=== PATIENT | female | born 1995 | race African-American/Black ===

== ENCOUNTER 2019-04-25 17:22 | Observation (INO) | payer OTHER, SELFPAY ==
[2019-04-25 17:46] VITALS: BP 136/77; PULSE 92
[2019-04-25 18:00] VITALS: BMI 33.7
[2019-04-25 18:01] VITALS: BP 133/85; PULSE 88
[2019-04-25 18:16] VITALS: BP 131/89; PULSE 87
[2019-04-25 18:31] VITALS: BP 120/82; PULSE 84
--- NOTE | 2019-04-25 19:12 | OBADM ---
This patient, Rosio Hayes, admitted to the OB room Labor/Delivery/Recovery 106 for observation. Patient/family oriented to hospital policies and general routines including ID bracelet, bed and alarms, visiting hours, pain management, procedures, bathroom and other care routines, personal items, smoking policy, room service/diet, and visiting hours. Patient/Family are encouraged to report perceived risks to care and to ask questions if they do not understand what they are told or what they should do.
--- NOTE | 2019-04-29 09:40 | PM.OBTRLD ---
OB - Triage/Final Diagnosis Visit Information Reason for evaluation: threatened labor
== END 2019-04-25 19:08 | disposition home or self-care (01) ==
PROVIDERS: Admitting Provider Obstetrics & Gynecology; Visit Provider Obstetrics & Gynecology
DX: O47.03 False labor before 37 completed weeks of gestation, third trimester (principal); Z3A.34 34 weeks gestation of pregnancy
CPT/HCPCS: G0378; G0379

== ENCOUNTER 2020-10-22 20:05 | Emergency (ER) | payer OTHER, SELFPAY ==
[2020-10-22] VITALS (11 sets, daily range): BP systolic 123–132; BP diastolic 69–81; PULSE 84–103; RESP 18–25; TEMP 36.8; O2SAT 100
--- NOTE | 2020-10-22 20:09 | ECG_ITS ---
Measurements Intervals [place] Rate: 101 P: 50 LA: 154 QRS: 63 QRSD: 82 T: 2 QT: 332 QTc: 431 Interpretive Statements SINUS TACHYCARDIA NONSPECIFIC T-WAVE ABNORMALITY- INFERIOR LEADS BORDERLINE ECG Electronically Signed On 10-23-2020 5:44:19 CDT by Germán Shah D.O.
[2020-10-22 20:46] LABS: Basophils Percent Auto 0.5 % (0.2-1.2); Eosinophils Percent Auto 0.2 % (0-4.4); Hematocrit 36.1 % (37.0-47.0); Hemoglobin 11.7 g/dL (12.0-15.0); Immature Granulocyte Absolute 0.01 K/mm3 (0.00-0.031); Immature Granulocyte Percent A 0.2 % (0-0.5); Lymphocytes Percent Auto 24.3 % (18.3-44.2); Mean Corpuscular HGB Conc 32.4 g/dl (32-36); Mean Corpuscular Hemoglobin 23.5 pg (26-34); Mean Corpuscular Volume 72.5 fl (80-100); Mean Platelet Volume 9.6 fl (7.4-10.4); Monocytes Absolute Auto 0.4 K/mm3 (0.1-0.6); Neutrophils Absolute Auto 2.7 K/mm3 (1.3-6.7); Neutrophils Percent Auto 64.8 % (45.5-73.1); Platelet Count Result 366 k/mm3 (150-375); Red Blood Count 4.98 M/mm3 (4.2-5.4); Red Cell Distribution Width 15.3 % (11.5-14.5); White Blood Count 4.1 K/mm3 (4.5-10.0)
[2020-10-22] MEDS: LACTATED RINGERS 1,000 ML 999 ML IV CONT (20:53)
[2020-10-22 20:58] LABS: Anion Gap 9 mmol/L (8-16); Blood Urea Nitrogen 3 mg/dL (7-17); Calcium 8.6 mg/dL (8.4-10.2); Carbon Dioxide 21 mmol/L (22-30); Chloride 106 mmol/L (98-107); Estimated CRCL calculation 143 ml/min; Estimated Glomerular Filt Rate > 60; Glucose 100 mg/dL (65-110); Potassium 3.3 mmol/L (3.4-5.0); Sodium 136 mmol/L (137-145)
[2020-10-22 20:59] LABS: INR 0.9; Prothrombin Time 12.2 Seconds (11.1-14.7)
[2020-10-22 21:00] LABS: Partial Thromboplastin Time 32.4 SECONDS (22.3-36.8)
[2020-10-22 21:09] LABS: Troponin I < 0.012 ng/mL (0.000-0.034)
[2020-10-22 21:33] LABS: Add Urine Microscopic? YES; Appearance Urine Cloudy (Clear); Bilirubin Urine Negative (Negative); Blood Urine Negative (Negative); Color Urine Yellow (Yellow); Glucose Urine UA Negative (Negative); Ketones Urine Negative (Negative); Leukocyte Esterase Ur 3+ LEU/UL (Negative); Mucus Urine Rare /lpf; Nitrate Urine Negative (Negative); Protein Urine 1+ mg/dL (Negative); Specific Grav Ur 1.019 (1.001-1.035); Squamous Epithelial Cell Urine Many /hpf (Few); Urobilinogen Urine Negative mg/dL (<2.0); WBC Urine 16-20 /hpf
--- NOTE | 2020-10-22 21:39 | ED.GENADULT ---
HPI - General Adult General Chief complaint: Chest Pain Stated complaint: 12 weeks , CP Time Seen by Provider: 10/22/20 20:09 Source: patient Mode of arrival: ambulatory Limitations: no limitations History of Present Illness HPI narrative: 24-year-old 4 para 2 about 12 weeks of gestation here with complaints of intermittent chest pain which lasts for few seconds to a minute also complains of lower abdominal pain for past few days. She denies any vaginal bleeding or discharge. No history of fever or chills. Denies cough or shortness of breath. Onset (ago): day(s) (4) Location: chest and abdomen Severity: mild Quality: aching Pain Consistency: intermittent Relieving factors: none Exacerbating factors: none Associated symptoms: denies other symptoms Related Data Home Medications Medication Instructions Recorded Confirmed PNV cmb#95-ferrous fumarate-FA 1 tablet PO DAILY 04/25/19 04/25/19 [] aspirin 81 mg PO DAILY 10/22/20 Allergies Allergy/AdvReac Type Severity Reaction Status Date / Time amoxicillin Allergy Swelling Verified 10/22/20 20:30 of Lip/Tongue/Throat Review of Systems Review of Systems: All systems reviewed & are unremarkable except as noted in HPI and below Constitutional: Constitutional: Reports no additional constitutional complaints Eyes: Eyes: Reports no additional eye complaints ENT: Reports system reviewed and no additional complaints, except as documented Cardiovascular: Cardiovascular: Reports as per HPI Respiratory: Respiratory: Reports no additional respiratory complaints Gastrointestinal: Gastrointestinal: Reports as per HPI Genitourinary: Genitourinary: Reports no additional female genitourinary complaints Musculoskeletal: Musculoskeletal: Reports no additional musculoskeletal complaints Neurologic: Reports system reviewed and no additional complaints, except as documented Exam Narrative: GENERAL: Well-appearing, well-nourished, and in no acute distress. HEAD: Normocephalic, atraumatic. EYES: PERRLA and EOMI.. NECK: Supple. CHEST: Clear to auscultation. No respiratory distress. HEART: Regular rate and rhythm. No murmur heard. Normal peripheral pulses. ABDOMEN: Soft, nontender, nondistended, normal active bowel sounds. EXTREMITIES: Normal range of motion. No edema. SKIN: Warm, dry, no rash. NEURO: No focal deficits. Alert and oriented x3. PSYCH: Normal mood and affect. Course Course Emergency Course: Patient had no further episodes of chest pain or abdominal pain. I have reviewed her lab work and EKG with patient. Advised her to drink plenty of fluids, take antibiotic as prescribed, follow-up with OB doctor. Vital Signs Vital signs: Vital Signs Pulse Rate 102 H 10/22/20 20:25 Respiratory Rate 20 10/22/20 20:25 Blood Pressure 123/81 10/22/20 20:25 Pulse Oximetry 100 10/22/20 20:25 Pulse Rate 85 10/22/20 21:30 Respiratory Rate 18 10/22/20 21:30 Blood Pressure 124/69 10/22/20 21:02 Pulse Oximetry 100 10/22/20 20:25 Medical Decision Making Vital Signs Vital Signs: Vital Signs Pulse Rate 102 H 10/22/20 20:25 Respiratory Rate 20 10/22/20 20:25 Blood Pressure 123/81 10/22/20 20:25 Pulse Oximetry 100 10/22/20 20:25 Pulse Rate 85 10/22/20 21:30 Respiratory Rate 18 10/22/20 21:30 Blood Pressure 124/69 10/22/20 21:02 Pulse Oximetry 100 10/22/20 20:25 Lab Data Result diagrams: 10/22/20 20:41 10/22/20 20:41 Labs: Lab Results 10/22/20 10/22/20 10/22/20 Range/Units 20:41 20:41 20:41 WBC 4.1 L (4.5-10.0) K/mm3 RBC 4.98 (4.2-5.4) M/mm3 Hgb 11.7 L (12.0-15.0) g/dL Hct 36.1 L (37.0-47.0) % MCV 72.5 L (80-100) fl MCH 23.5 L (26-34) pg MCHC 32.4 (32-36) g/dl RDW 15.3 H (11.5-14.5) % Plt Count 366 (150-375) k/mm3 MPV 9.6 (7.4-10.4) fl Immature Gran % (Auto) 0.2 (0-0.5) % Neut % (Aut
== END 2020-10-22 22:45 | disposition home or self-care (01) ==
PROVIDERS: Emergency Provider Family Medicine
DX: O26.891 Other specified pregnancy related conditions, first trimester (principal); R07.89 Other chest pain; O23.41 Unspecified infection of urinary tract in pregnancy, first trimester; R00.0 Tachycardia, unspecified; R94.31 Abnormal electrocardiogram [ECG] [EKG]; Z3A.12 12 weeks gestation of pregnancy
CPT/HCPCS: 36415; 80048; 81001; 84484; 85025; 85610; 85730; 87086; 87088; 93005; 96360; 99284; J7120

== ENCOUNTER 2020-10-26 13:13 | Emergency (ER) | payer OTHER, SELFPAY ==
[2020-10-26 13:15] VITALS: BP 134/70; PULSE 89; RESP 16; TEMP 36.4; O2SAT 100
[2020-10-26 14:49] VITALS: BP 134/70; PULSE 80; RESP 18; TEMP 36.4; O2SAT 99
--- NOTE | 2020-10-26 14:55 | ED.SKABFB ---
HPI - Skin/Abscess/Foreign Bdy General Chief complaint: Skin/Abscess/Foreign Body Stated complaint: BOIL R AXILLA Time Seen by Provider: 10/26/20 14:48 Source: patient Mode of arrival: ambulatory Limitations: no limitations History of Present Illness HPI narrative: This is a 24 year old female that presents to the ER for an abscess to the right axilla present over the last month. Reports worsening pain which prompted her to be seen. Reports she is currently 12 weeks . Denies any problems with the . She has had a normal US this . Denies fever or drainage. Related Data Home Medications Medication Instructions Recorded Confirmed PNV cmb#95-ferrous fumarate-FA 1 tablet PO DAILY 04/25/19 04/25/19 [] aspirin 81 mg PO DAILY 10/22/20 Allergies Allergy/AdvReac Type Severity Reaction Status Date / Time amoxicillin Allergy Swelling Verified 10/22/20 20:30 of Lip/Tongue/Throat Review of Systems Review of Systems: CONSTITUTIONAL: Denies fever SKIN: Reports abscess All systems reviewed & are unremarkable except as noted in HPI and below PMFSH Past Medical History Medical History (Updated 10/26/20 @ 16:25 by Latasha Saxena PA-C) No active medical problems Social History Social History (Updated 10/26/20 @ 14:58 by Latasha Saxena PA-C) Smoking status: Current every day smoker Exam Narrative: GENERAL: Well-appearing, well-nourished, and in no acute distress. HEAD: Normocephalic, atraumatic. EYES: EOMI. EXTREMITIES: Normal range of motion. No edema. Right axilla with 2cm area of erythema with central fluctuance, tender to palpation. No lymphangitic streaking SKIN: Warm, dry, no rash. NEURO: No focal deficits. Alert and oriented x3. PSYCH: Normal mood and affect Course Vital Signs Vital signs: Vital Signs Temperature 97.6 F 10/26/20 13:15 Pulse Rate 89 10/26/20 13:15 Respiratory Rate 16 10/26/20 13:15 Blood Pressure 134/70 10/26/20 13:15 Pulse Oximetry 100 10/26/20 13:15 Temperature 97.6 F 10/26/20 14:49 Pulse Rate 80 10/26/20 14:49 Respiratory Rate 18 10/26/20 14:49 Blood Pressure 134/70 10/26/20 14:49 Pulse Oximetry 99 10/26/20 14:49 Procedures Abscess I/D upper extremity: Date of Incision: 10/26/20 Time of Incision: 16:24 Side (if applicable): right Local Anesthetic: lidocaine 1% and with epi Amount of anesthesia used (mL): 3 Technique: incised with #11 blade Irrigation: Yes Packing used?: iodoform I&D Results: Pus and Blood Abcess I&D Additional Comments: Loculations were broken up MDM - Skin/Abscess/Foreign Bdy MDM Narrative Medical decision making narrative: Patient presents the emergency department for abscess present in the right axilla. She is afebrile and nontoxic-appearing. Abscess was successfully drained. Patient will be started on oral antibiotics and is to follow-up with primary doctor. She was given warnings to return to the ER Critical Care Time Critical Care Time Critical Care Time: No Discharge Plan Discharge Clinical Impression: Abscess of skin or subcutaneous tissue Qualifiers: Site of cutaneous abscess: extremity Site of cutaneous abscess of extremity: axilla Laterality: right Qualified Code(s): L02.411 - Cutaneous abscess of right axilla Patient Disposition: Home, Self-Care Condition: Stable Instructions: Antibiotic Form, Abscess (ED) Additional Instructions: Return if symptoms worsen or concerns: any increase in redness, swelling, pain, or fever over 101 Take antibiotics as directed. Clean wound with mild soapy water. Apply antibiotic ointment and clean dressing at least three times daily. Warm compresses 3 times a day for 30 minutes each Follow up with primary care in the next 2-3 days for re-evaluation and packing removal Prescriptions: New clindamycin HCl 300 mg capsule 300 mg PO Q6H 5 Days Qty:
[2020-10-26 16:37] VITALS: BP 122/68; PULSE 78; RESP 18; O2SAT 99
== END 2020-10-26 16:40 | disposition home or self-care (01) ==
PROVIDERS: Emergency Provider Emergency Medicine; PCP Emergency Medicine
DX: L02.411 Cutaneous abscess of right axilla (principal)
CPT/HCPCS: 10061; 87070; 87077; 87147; 87186; 87205; 99283

== ENCOUNTER 2021-04-03 15:17 | Outpatient (CLI) | payer OTHER, SELFPAY ==
[2021-04-03] VITALS (8 sets, daily range): BP systolic 127–146; BP diastolic 83–96; PULSE 86–106; RESP 20; TEMP 36.5; BMI 31.2
[2021-04-03] MEDS: ACETAMINOPHEN 325 MG TABLET 650 MG PO (16:11)
[2021-04-03 16:25] LABS: Basophils Percent Auto 0.4 % (0.2-1.2); Eosinophils Absolute Auto 0.1 K/mm3 (0-0.3); Hematocrit 31.6 % (37.0-47.0); Hemoglobin 10.4 g/dL (12.0-15.0); Immature Granulocyte Absolute 0.06 K/mm3 (0.00-0.031); Immature Granulocyte Percent A 0.5 % (0-0.5); Lymphocytes Absolute Auto 2.07 K/mm3 (0.9-3.2); Lymphocytes Percent Auto 18.7 % (18.3-44.2); Mean Corpuscular HGB Conc 32.9 g/dl (32-36); Mean Corpuscular Volume 72.8 fl (80-100); Mean Platelet Volume 9.7 fl (7.4-10.4); Monocytes Absolute Auto 0.7 K/mm3 (0.1-0.6); Monocytes Percent Auto 6.1 % (2.6-8.5); Neutrophils Absolute Auto 8.1 K/mm3 (1.3-6.7); Neutrophils Percent Auto 73.3 % (45.5-73.1); Platelet Count Result 389 k/mm3 (150-375); Red Blood Count 4.34 M/mm3 (4.2-5.4); Red Cell Distribution Width 14.8 % (11.5-14.5); White Blood Count 11.1 K/mm3 (4.5-10.0)
[2021-04-03 16:30] LABS: Creatinine Urine 187.6 mg/dL
[2021-04-03 16:31] LABS: Add Urine Microscopic? YES; Appearance Urine Clear (Clear); Bilirubin Urine Negative (Negative); Blood Urine Negative (Negative); Color Urine Yellow (Yellow); Glucose Urine UA Negative (Negative); Ketones Urine Negative (Negative); Leukocyte Esterase Ur Trace LEU/UL (Negative); Mucus Urine Rare /lpf; Nitrate Urine Negative (Negative); Protein Urine Negative (Negative); RBC Urine 0-2 /hpf (0-2); Specific Grav Ur 1.016 (1.001-1.035); Squamous Epithelial Cell Urine Few /hpf (Few); Urobilinogen Urine Negative mg/dL (<2.0); WBC Urine 0-3 /hpf
[2021-04-03 16:33] LABS: Alanine Aminotransferase 6 U/L (4-35); Albumin Level 3.4 g/dL (3.5-5.1); Alkaline Phosphatase 131 U/L (38-126); Anion Gap 3 mmol/L (8-16); Aspartate Amino Transferase 14 U/L (14-36); Bilirubin,Total < 0.1 mg/dL (0.2-1.3); Blood Urea Nitrogen 3 mg/dL (7-17); Calcium 8.6 mg/dL (8.4-10.2); Carbon Dioxide 23 mmol/L (22-30); Chloride 107 mmol/L (98-107); Estimated CRCL calculation 107 ml/min; Estimated Glomerular Filt Rate > 60; Glucose 81 mg/dL (65-110); Potassium 3.7 mmol/L (3.4-5.0); Sodium 133 mmol/L (137-145); Uric Acid 5.5 mg/dL (2.5-7.5)
--- NOTE | 2021-04-03 17:06 | PC.NURSE ---
Called lab as pt's random total protein isn't back yet.
[2021-04-03 17:09] LABS: Total Protein Urine Random < 5 mg/dL
[2021-04-03 17:18] LABS: Ur Ttl Prot Creatinine Ratio < 0.03 mg/mg (0-0.20)
--- NOTE | 2021-04-03 17:23 | PC.NURSE ---
Dr. Enamorado informed of labs, BP's, and pt's headache has improved with Tylenol. OK to discharge to home.
== END 2021-04-03 17:32 | disposition home or self-care (01) ==
LOC: ANHOBOP 15:22 → ANHOBPP 04-08 06:23
PROVIDERS: Obstetrics & Gynecology; PCP Emergency Medicine; Visit Provider Student in an Organized Health Care Education/Training Program
DX: O13.9 Gestational [pregnancy-induced] hypertension without significant proteinuria, unspecified trimester (principal); Z3A.00 Weeks of gestation of pregnancy not specified
CPT/HCPCS: 36415; 59025; 80053; 81001; 82570; 84156; 84550; 85025; 99199; A9270

== ENCOUNTER 2021-04-12 15:23 | Outpatient (RCR) | payer OTHER, SELFPAY ==
[2021-04-07 16:14] LABS: Basophils Absolute Auto 0.1 K/mm3 (0.0-0.1); Basophils Percent Auto 0.4 % (0.2-1.2); Eosinophils Absolute Auto 0.1 K/mm3 (0-0.3); Hematocrit 31.8 % (37.0-47.0); Hemoglobin 10.3 g/dL (12.0-15.0); Immature Granulocyte Absolute 0.07 K/mm3 (0.00-0.031); Immature Granulocyte Percent A 0.5 % (0-0.5); Lymphocytes Absolute Auto 2.07 K/mm3 (0.9-3.2); Lymphocytes Percent Auto 15.2 % (18.3-44.2); Mean Corpuscular HGB Conc 32.4 g/dl (32-36); Mean Corpuscular Hemoglobin 23.8 pg (26-34); Mean Corpuscular Volume 73.6 fl (80-100); Mean Platelet Volume 9.8 fl (7.4-10.4); Monocytes Absolute Auto 0.7 K/mm3 (0.1-0.6); Monocytes Percent Auto 5.1 % (2.6-8.5); Neutrophils Absolute Auto 10.6 K/mm3 (1.3-6.7); Neutrophils Percent Auto 77.8 % (45.5-73.1); Platelet Count Result 377 k/mm3 (150-375); Red Blood Count 4.32 M/mm3 (4.2-5.4); White Blood Count 13.6 K/mm3 (4.5-10.0)
[2021-04-07 16:27] LABS: Alanine Aminotransferase 9 U/L (4-35); Albumin Level 3.4 g/dL (3.5-5.1); Alkaline Phosphatase 149 U/L (38-126); Anion Gap 6 mmol/L (8-16); Aspartate Amino Transferase 16 U/L (14-36); Bilirubin,Total 0.3 mg/dL (0.2-1.3); Blood Urea Nitrogen 3 mg/dL (7-17); Calcium 8.5 mg/dL (8.4-10.2); Carbon Dioxide 21 mmol/L (22-30); Chloride 108 mmol/L (98-107); Estimated Glomerular Filt Rate > 60; Glucose 98 mg/dL (65-110); Potassium 3.5 mmol/L (3.4-5.0); Sodium 135 mmol/L (137-145); Uric Acid 5.4 mg/dL (2.5-7.5)
[2021-04-07 16:39] LABS: Add Urine Microscopic? YES; Appearance Urine Clear (Clear); Bacteria Urine Trace /hpf; Bilirubin Urine Negative (Negative); Blood Urine Negative (Negative); Color Urine Yellow (Yellow); Glucose Urine UA Negative (Negative); Ketones Urine Negative (Negative); Leukocyte Esterase Ur 2+ LEU/UL (NEGATIVE); Nitrate Urine Negative (Negative); Protein Urine Negative (Negative); RBC Urine 0-2 /hpf (0-2); Specific Grav Ur 1.014 (1.001-1.035); Squamous Epithelial Cell Urine Moderate /hpf (Few); Urobilinogen Urine Negative mg/dL (<2.0)
--- NOTE | 2021-04-07 17:03 | PC.NURSE ---
1548- NST BP's reveiwed with Dr. Enamorado, orders for PIH labs to be drawn. 1659Labs and Bps' reviewed. Orders to DC home with follow up at [facility] on 04/[address] jiang
[2021-04-07 17:10] LABS: Creatinine Urine 148.6 mg/dL; Total Protein Urine Random 8 mg/dL; Ur Ttl Prot Creatinine Ratio 0.05 mg/mg (0-0.20)
[2021-04-12 15:57] LABS: Basophils Percent Auto 0.4 % (0.2-1.2); Eosinophils Absolute Auto 0.1 K/mm3 (0-0.3); Eosinophils Percent Auto 1.2 % (0-4.4); Hematocrit 31.3 % (37.0-47.0); Hemoglobin 10.4 g/dL (12.0-15.0); Immature Granulocyte Absolute 0.07 K/mm3 (0.00-0.031); Immature Granulocyte Percent A 0.7 % (0-0.5); Lymphocytes Absolute Auto 2.11 K/mm3 (0.9-3.2); Lymphocytes Percent Auto 20.3 % (18.3-44.2); Mean Corpuscular HGB Conc 33.2 g/dl (32-36); Mean Corpuscular Hemoglobin 23.5 pg (26-34); Mean Corpuscular Volume 70.7 fl (80-100); Mean Platelet Volume 9.8 fl (7.4-10.4); Monocytes Absolute Auto 0.6 K/mm3 (0.1-0.6); Monocytes Percent Auto 5.7 % (2.6-8.5); Neutrophils Absolute Auto 7.5 K/mm3 (1.3-6.7); Neutrophils Percent Auto 71.7 % (45.5-73.1); Platelet Count Result 430 k/mm3 (150-375); Red Blood Count 4.43 M/mm3 (4.2-5.4); Red Cell Distribution Width 15.1 % (11.5-14.5); White Blood Count 10.4 K/mm3 (4.5-10.0)
[2021-04-12 16:00] VITALS: BP 151/88; PULSE 96
[2021-04-12 16:14] LABS: Alanine Aminotransferase 9 U/L (4-35); Albumin Level 3.6 g/dL (3.5-5.1); Alkaline Phosphatase 143 U/L (38-126); Anion Gap 7 mmol/L (8-16); Aspartate Amino Transferase 16 U/L (14-36); Bilirubin,Total 0.3 mg/dL (0.2-1.3); Blood Urea Nitrogen 4 mg/dL (7-17); Calcium 8.9 mg/dL (8.4-10.2); Carbon Dioxide 21 mmol/L (22-30); Chloride 107 mmol/L (98-107); Estimated Glomerular Filt Rate > 60; Glucose 86 mg/dL (65-110); Potassium 3.6 mmol/L (3.4-5.0); Sodium 135 mmol/L (137-145)
[2021-04-12 16:15] VITALS: BP 149/90; PULSE 102
[2021-04-12 16:20] LABS: Add Urine Microscopic? NO; Appearance Urine Clear (Clear); Bilirubin Urine Negative (Negative); Blood Urine Negative (Negative); Color Urine Yellow (Yellow); Creatinine Urine 162.3 mg/dL; Glucose Urine UA Negative (Negative); Ketones Urine Negative (Negative); Leukocyte Esterase Ur Negative LEU/UL (NEGATIVE); Nitrate Urine Negative (Negative); Protein Urine Negative (Negative); Specific Grav Ur 1.015 (1.001-1.035); Total Protein Urine Random 11 mg/dL; Ur Ttl Prot Creatinine Ratio 0.07 mg/mg (0-0.20); Urobilinogen Urine Negative mg/dL (<2.0)
[2021-04-12 16:30] VITALS: BP 146/88; PULSE 91
[2021-04-12 16:46] VITALS: BP 138/79; PULSE 73
[2021-04-12 17:01] VITALS: BP 136/77; PULSE 86
[2021-04-12 17:02] VITALS: BP 136/77; PULSE 86; RESP 18; TEMP 36.5
--- NOTE | 2021-04-12 17:02 | PC.NURSE ---
Addendum entered by Claudine Huitron RN 04/12/21 17:06: Have patient follow up tomorrow at [facility] for induction of labor at 1700. Original Note: Dr. Harrell notified regarding reactive NST, BPs, and lab results. Orders received to discharge patient to home.
== END 2021-06-28 09:00 | disposition home or self-care (01) ==
LOC: ANHOBOP 15:23
PROVIDERS: Obstetrics & Gynecology; PCP Emergency Medicine; Visit Provider Student in an Organized Health Care Education/Training Program
DX: O36.8130 Decreased fetal movements, third trimester, not applicable or unspecified (principal); Z3A.36 36 weeks gestation of pregnancy; O16.3 Unspecified maternal hypertension, third trimester; Z3A.37 37 weeks gestation of pregnancy
CPT/HCPCS: 36415; 59025; 80053; 81001; 81003; 82570; 84156; 84550; 85025; 87086

== ENCOUNTER 2021-04-13 16:55 | Inpatient (IN) | payer OTHER, SELFPAY ==
[2021-04-13] VITALS (10 sets, daily range): BP systolic 127–149; BP diastolic 58–90; PULSE 69–89; RESP 18; TEMP 36.7–36.9; O2SAT 100; BMI 31.7
--- NOTE | 2021-04-13 17:20 | LDADM ---
This patient, Rosio Hayes, was admitted to Labor/Delivery/Recovery 103 on 04/13/21 at 16:55. Plans for labor, pain management and were discussed with patient. Patient/family oriented to hospital policies and general routines including ID bracelet, bed and alarms, visiting hours, pain management, procedures, bathroom and other care routines, personal items, smoking policy, room service/diet and guest tray routines, infant security routines, and visiting hours. Patient/Family are encouraged to report perceived risks to care and to ask questions if they do not understand what they are told or what they should do. See OBIX for further documentation.
[2021-04-13] MEDS: LACTATED RINGERS 1,000 ML 125 ML IV CONT (17:39)
[2021-04-13] MEDS: ceFAZolin 2 GM/D5W 50 ML 2 GM/50 ML BAG IVPB (17:40)
[2021-04-13] MEDS: DINOPROSTONE 10 MG VAG INSERT VAGINAL (17:53)
[2021-04-13 17:54] LABS: Basophils Percent Auto 0.4 % (0.2-1.2); Eosinophils Absolute Auto 0.1 K/mm3 (0-0.3); Eosinophils Percent Auto 0.9 % (0-4.4); Hemoglobin 10.3 g/dL (12.0-15.0); Immature Granulocyte Absolute 0.06 K/mm3 (0.00-0.031); Immature Granulocyte Percent A 0.6 % (0-0.5); Lymphocytes Absolute Auto 2.05 K/mm3 (0.9-3.2); Lymphocytes Percent Auto 20.6 % (18.3-44.2); Mean Corpuscular HGB Conc 32.2 g/dl (32-36); Mean Corpuscular Hemoglobin 23.1 pg (26-34); Mean Corpuscular Volume 71.9 fl (80-100); Mean Platelet Volume 9.7 fl (7.4-10.4); Monocytes Absolute Auto 0.5 K/mm3 (0.1-0.6); Monocytes Percent Auto 5.2 % (2.6-8.5); Neutrophils Absolute Auto 7.2 K/mm3 (1.3-6.7); Neutrophils Percent Auto 72.3 % (45.5-73.1); Platelet Count Result 399 k/mm3 (150-375); Red Blood Count 4.45 M/mm3 (4.2-5.4); Red Cell Distribution Width 15.1 % (11.5-14.5)
[2021-04-14] VITALS (56 sets, daily range): BP systolic 91–167; BP diastolic 59–140; PULSE 56–133; RESP 16–18; TEMP 36.1–36.8; O2SAT 79–100
[2021-04-14] MEDS: fentaNYL CITRATE INJ (*CRX) 100 MCG/2 ML VIAL 50 MCG IV PUSH ×2 (02:24→04:51)
--- NOTE | 2021-04-14 03:30 | WPDANESEPP ---
Anes - Eval Pre Procedure Procedure: labor epidural Date/Time: 04/14/21 03:30 Surgeon: sam Preop Diagnosis: pain during labor Pre Op Diagnosis: Induction of Labor Patient Data Age: 25 Gender: F Height: 1.7 m Weight: 92 kg Last Vital Signs Temp 36.9 C 04/13/21 21:25 Pulse 69 04/14/21 03:01 Resp 18 04/13/21 21:25 BP 143/82 H 04/14/21 03:01 Pulse Ox 100 04/13/21 18:10 Allergies Allergy/AdvReac Type Severity Reaction Status Date / Time amoxicillin Allergy Severe Swelling Verified 04/13/21 17:03 of Lip/Tongue/Throat Home Medications Medication Instructions Recorded Confirmed Type PNV cmb#95-ferrous fumarate-FA 1 tablet PO DAILY 04/25/19 04/13/21 History [] aspirin 81 mg PO DAILY 10/22/20 04/13/21 History Laboratory Tests 04/13/21 04/13/21 04/13/21 17:16 17:16 17:16 WBC 10.0 K/mm3 K/mm3 (4.5-10.0) RBC 4.45 M/mm3 M/mm3 (4.2-5.4) Hgb 10.3 g/dL L g/dL (12.0-15.0) Hct 32.0 % L % (37.0-47.0) MCV 71.9 fl L fl (80-100) MCH 23.1 pg L pg (26-34) MCHC 32.2 g/dl g/dl (32-36) RDW 15.1 % H % (11.5-14.5) Plt Count 399 k/mm3 H k/mm3 (150-375) MPV 9.7 fl fl (7.4-10.4) Immature Gran % (Auto) 0.6 % H % (0-0.5) Neut % (Auto) 72.3 % % (45.5-73.1) Lymph % (Auto) 20.6 % % (18.3-44.2) Gregory % (Auto) 5.2 % % (2.6-8.5) Eos % (Auto) 0.9 % % (0-4.4) Baso % (Auto) 0.4 % % (0.2-1.2) Lymph # (Auto) 2.05 K/mm3 K/mm3 (0.9-3.2) Gregory # (Auto) 0.5 K/mm3 K/mm3 (0.1-0.6) Eos # (Auto) 0.1 K/mm3 K/mm3 (0-0.3) Baso # (Auto) 0.0 K/mm3 K/mm3 (0.0-0.1) Abs Immat Gran (auto) 0.06 K/mm3 H K/mm3 (0.00-0.031) Absolute Neuts (auto) 7.2 K/mm3 H K/mm3 (1.3-6.7) Absolute Nucleated RBC 0.0 K/mm3 K/mm3 (0.0-0.012) Nucleated RBC % 0.0 % % (0.0-0.2) RPR Pending Blood Type B Positive Antibody Screen Negative Patient hx anesthesia problems: none Family hx anesthesia problems: none Results Review: All pre-operative results and documents have been reviewed as part of the pre-operative evaluation. [facility] Past Medical History Medical History (Updated 04/14/21 @ 03:33 by Sayda Nunes CRNA) Hypertension Family History Family History Father , PASSED FROM HEART FAILURE. Heart disease Diabetes mellitus Congestive heart failure Mother , PASSED FROM COVID. Hypertension COVID Sibling Hypertension Sibling Hypertension Social History Social History (Updated 12/30/20 @ 14:33 by Scotty Grant MA) Smoking status: Never smoker Alcohol intake: current Alcohol use details: Patient states she is a social drinker when not . Substance use: never Spiritual care concerns: No Exam Day of Procedure 04/14/21 03:30
[2021-04-14] MEDS: OXYTOCIN 30 UNITS/NS 500 ML 30 UNITS/500 ML BAG IV CONT (06:36)
--- NOTE | 2021-04-14 08:29 | PM.IMHP ---
H&P: HPI History of Present Illness Date/Time: 04/14/21 08:29 Chief Complaint: intrauterine at term chronic hypertensions Narrative: 25 yo at 37w3d who presents for IOL for CHTN. PT has had mild range blood pressure at several outpatient visits. Preeclampsia labwork has been wnl. She denies any preeclampsia symptoms. Pt has had preeclampsia in her last two pregnancies. She has been on a daily aspirin. Review of Systems Cardiovascular: Cardiovascular: Denies chest pain, Denies leg edema, Denies palpitations, Denies dyspnea and Denies dyspnea on exertion Respiratory: Respiratory: Denies cough, Denies dyspnea and Denies dyspnea on exertion Gastrointestinal: Gastrointestinal: Denies abdominal pain, Denies constipation, Denies diarrhea, Denies nausea and Denies vomiting Genitourinary: Genitourinary: Denies hematuria, Denies urinary frequency, Denies dysuria, Denies pelvic pain, Denies urinary incontinence and Denies vaginal discharge Neurologic: Reports system reviewed and no additional complaints, except as documented Psychiatric: Psychiatric: Reports no additional psychiatric complaints Endocrine: Endocrine: Denies palpitations [facility] Past Medical History Medical History (Updated 04/14/21 @ 08:32 by Alfredo Harrell MD) Hypertension Family History Family History Father , PASSED FROM HEART FAILURE. Heart disease Diabetes mellitus Congestive heart failure Mother , PASSED FROM COVID. Hypertension COVID Sibling Hypertension Sibling Hypertension Social History Social History (Updated 12/30/20 @ 14:33 by Scotty Grant MA) Smoking status: Never smoker Alcohol intake: current Alcohol use details: Patient states she is a social drinker when not . Substance use: never Spiritual care concerns: No Meds Home Medications and Allergies Home Medications Medication Instructions Recorded Confirmed Type PNV cmb#95-ferrous fumarate-FA 1 tablet PO DAILY 04/25/19 04/13/21 History [] aspirin 81 mg PO DAILY 10/22/20 04/13/21 History Allergies Allergy/AdvReac Type Severity Reaction Status Date / Time amoxicillin Allergy Severe Swelling Verified 04/13/21 17:03 of Lip/Tongue/Throat Vital Signs Vital Signs - 24 hr 04/13/21 18:00 04/13/21 18:01 04/13/21 18:10 Temperature 36.7 C 36.7 C Pulse Rate 89 Respiratory Rate 18 Blood Pressure 144/75 H Pulse Oximetry 100 04/13/21 18:31 04/13/21 19:01 04/13/21 19:31 Temperature Pulse Rate 78 69 80 Respiratory Rate Blood Pressure 127/58 L 135/62 149/90 H Pulse Oximetry 04/13/21 20:01 04/13/21 21:25 04/13/21 22:06 Temperature 36.9 C Pulse Rate 74 77 Respiratory Rate 18 Blood Pressure 145/84 H 148/86 H Pulse Oximetry 04/13/21 23:00 04/14/21 00:00 04/14/21 01:01 Temperature Pulse Rate 82 75 68 Respiratory Rate Blood Pressure 143/87 H 141/90 H 123/67 Pulse Oximetry 04/14/21 02:00 04/14/21 03:01 04/14/21 04:01 Temperature Pulse Rate 68 69 80 Respiratory Rate Blood Pressure 137/86 143/82 H 135/73 Pulse Oximetry 04/14/21 04:24 04/14/21 05:01 04/14/21 06:01 Temperature 36.6 C Pulse Rate 78 74 Respiratory Rate 18 Blood Pressure 144/93 H 143/92 H Pulse Oximetry 04/14/21 06:35 04/14/21 06:37 04/14/21 07:00 Temperature 36.4 C Pulse Rate 68 70 Respiratory Rate Blood Pressure 154/93 H 139/73 Pulse Oximetry 04/14/21 07:30 04/14/21 07:42 04/14/21 07:44 Temperature Pulse Rate 73 78 Respiratory Rate Blood Pressure 153/103 H 152/92 H Pulse Oximetry 100 04/14/21 07:47 04/14/21 07:49 04/14/21 07:52 Temperature Pulse Rate 65 Respiratory Rate Blood Pressure 167/94 H Pulse Oximetry 100 100 04/14/21 07:55 04/14/21 07:57 04/14/21 08:02 Temperature Pulse Rate 76 66 Respiratory Rate Blood Pr
--- NOTE | 2021-04-14 09:07 | PM.OBPRVD ---
OB - Delivery Note Procedure Procedure: Patient pushed for a spontaneous vaginal delivery. The fetus was delivered atraumatically and placed on the maternal abdomen. The cord was clamped and cut after 1 minute of life. The cord was double clamped and cut and a segment of cord was collected for cord gases. Cord blood was collected for blood type and Coomb's testing. The placenta delivered spontaneously and was noted to be intact. The perineum was inspected and there were no lacerations noted. The uterus was firm and good hemostasis was noted. The patient and fetus were stable in the delivery room. Events: Chronic Hypertension Induction method: Per Cervidil Protocol Delivery augmentation: Rupture of Membranes Delivery monitor: External FHT Route of delivery: Episiotomy description: None Laceration Description: None Specimen: No Quantitative Blood Loss (ml): 150 Anesthesia type: Epidural Disposition: floor () Complications: No immediate complications [place] Baby Date of : 04/14/21 Time of : 08:56 Weeks of gestation at delivery: 37 gender: Female Weight (pounds): 5 Weight (ounces): 8 presentation: vertex position: Right Occiput Anterior Placenta delivery description: Spontaneous Cord Vessel Description: 3 Vessels score one minute: 9 score five minutes: 9
[2021-04-14] MEDS: OXYTOCIN 30 UNITS/NS 500 ML 30 UNITS/500 ML BAG 125 UNITS IV CONT (09:33)
--- NOTE | 2021-04-14 11:32 | PC.NURSE ---
Patient transferred to post room #279 via wheelchair. Support person present. Oriented to unit, room, information board, rooming in, admission packet and security measures. Patient verbalizes understanding.
[2021-04-14] MEDS: IBUPROFEN 600 MG TABLET PO ×2 (12:05→21:29)
[2021-04-14 14:53] LABS: Rapid Plasma Reagin Non-Reactive (NonReactive)
[2021-04-14] MEDS: ACETAMINOPHEN 325 MG TABLET 650 MG PO (22:47)
[2021-04-15] MEDS: IBUPROFEN 600 MG TABLET PO ×2 (04:10→09:11)
[2021-04-15 04:22] VITALS: BP 128/86; PULSE 80; RESP 18; TEMP 36.6; O2SAT 100
[2021-04-15 05:42] LABS: Hemoglobin 9.4 g/dL (12.0-15.0)
[2021-04-15 07:30] VITALS: BP 127/78; PULSE 79; RESP 16; TEMP 36.3; O2SAT 100
--- NOTE | 2021-04-15 07:48 | PM.OBDSVD ---
DS: Admitting Diagnosis Discharge Date 04/15/21 Admitting Diagnosis intrauterine at term chronic hypertension OB - DS: Summary OB Procedures : None OB Procedures Intrapartum: Spontaneous Vag Delivery OB Procedures: : None Status at Discharge Functional status at discharge: independent ambulation Overall status at discharge: patient is back to baseline Time Spent with Patient Time attestation: Total time spent providing and/or coordinating discharge services: Time spent: Less than 30 minutes Exam Const: General: comfortable and no acute distress Resp: Effort & Inspection: normal respiratory effort Auscultation: clear to auscultation bilaterally Cardio: Rate: regular rate GI: GI Palp: Yes Soft to palpation Auscultation: normal bowel sounds Other: Fundus firm below umbilicus Psych: Appearance: grossly normal Mental Status: mental status grossly normal Affect: normal affect DS: Data Data Completed and Pending Pending studies at discharge: Pending at discharge 04/14/21 08:59 Surgical [PTH] Routine Labs on day of discharge: Labs from last 24 hours 04/15/21 04/13/21 04:12 17:16 Hgb 9.4 L Hct 29.0 L RPR Non-reactive Discharge Plan Discharge Discharging Clinician: Alfredo Harrell Patient Disposition: Home, Self-Care Activity: as tolerated and pelvic rest Diet: regular Patient Instructions: Antibiotic Form, Vaginal Delivery (DC) Stand Alone Forms: General Discharge Information Follow-up/Referrals: Alfredo Harrell MD [Physician] - 1 Week Discharge Medications: New acetaminophen [Mapap (acetaminophen)] 325 mg Tablet 650 mg PO Q6H PRN (Reason: Mild Pain (1-3) Or Headache) Qty: 30 RF: 0 polysaccharide iron complex 150 mg iron Capsule 150 mg PO BIDWM Qty: 60 RF: 0 ibuprofen 600 mg Tablet 600 mg PO Q6H PRN (Reason: Cramping) Qty: 30 RF: 0 Continued PNV cmb#95-ferrous fumarate-FA [] 28 mg iron- 800 mcg Tablet 1 tablet PO DAILY RF: 0 Discontinued aspirin 81 mg Capsule 81 mg PO DAILY RF: 0 Date of admission: 04/13/21 16:55 Primary Care Provider: Damion Velez Admitting Provider: Alfredo Harrell Attending physician on admission: Alfredo Harrell Condition: Stable
[2021-04-15] MEDS: DOCUSATE SODIUM 100 MG CAPSULE PO (09:11)
[2021-04-15] MEDS: POLYSACCHARIDE IRON COMPLEX 150 MG CAPSULE PO (09:11)
--- NOTE | 2021-04-15 11:09 | PC.NURSE ---
Patient to view the discharge video Mother & Baby Care, The First Two Weeks online. Patient was given the opportunity and encouraged to ask questions. Patient verbalized understanding of information shared and has been given the mother/baby guide for home reference.
--- NOTE | 2021-04-15 11:47 | WPDANLDPN2 ---
Anes-Prog Note L&D Date/Time: 04/15/21 11:47 Comfortable throughout: labor and delivery Neuraxial method: epidural Epidural/Spinal procedure site: clean & non-tender Neuro status: Neuro function grossly intact. Cardiovascular status: normal Respiratory status: normal Airway patency: baseline Mental status: baseline Post-Op hydration status: normal Vital Signs: Last Vital Signs Temp 36.3 C L 04/15/21 07:30 Pulse 79 04/15/21 07:30 Resp 16 04/15/21 07:30 BP 127/78 04/15/21 07:30 Pulse Ox 100 04/15/21 07:30 Pain score (VAS): 2 Post-procedural complaints: none Patient feedback: Patient satisfied with anesthetic care.
== END 2021-04-15 12:28 | disposition home or self-care (01) | DRG 560 ==
LOC: ANHLDR 17:04 → ANHOB2 04-14 11:52
PROVIDERS: Admitting Provider Student in an Organized Health Care Education/Training Program; PCP Emergency Medicine; Visit Provider Student in an Organized Health Care Education/Training Program
DX: O10.92 Unspecified pre-existing hypertension complicating childbirth (principal); Z37.0 Single live birth; Z3A.37 37 weeks gestation of pregnancy; O99.214 Obesity complicating childbirth; E66.9 Obesity, unspecified
CPT/HCPCS: 36415; 85014; 85018; 85025; 86592; 86850; 86900; 86901; 88307; A9270; J0690; J2590; J2795; J3010; J7120

== ENCOUNTER 2022-02-03 16:03 | Emergency (ER) | payer OTHER, SELFPAY ==
[2022-02-03 16:19] VITALS: TEMP 37.2
[2022-02-03 17:00] LABS: Influenza A QL RT-PCR Negative (Negative); Influenza B QL RT-PCR Negative (Negative); RSV RNA, RT-PCR Negative (Negative); SARS-CoV-2 RNA PCR Negative
[2022-02-03] MEDS: ACETAMINOPHEN 500 MG TABLET 1000 MG PO (17:38)
--- NOTE | 2022-02-03 18:16 | ED.URI ---
HPI - URI/Sore Throat General Chief Complaint: Upper Respiratory Infection Stated Complaint: eye redness, bodyaches, chills Time Seen by Provider: 02/03/22 16:19 History of Present Illness HPI Narrative: 26-year-old female presents emergency room for evaluation of sore throat, body aches and fever. Patient also endorses erythema and pruritus to bilateral eyes. Has not been taking any medications to alleviate her symptoms. Denies cough. Denies sinus congestion postnasal drip. Related Data Allergies Allergy/AdvReac Type Severity Reaction Status Date / Time amoxicillin Allergy Severe Swelling Verified 08/11/21 15:06 of Lip/Tongue/Throat Review of Systems Review of Systems: CONSTITUTIONAL: Reports fever EYES: Denies visual changes, redness, or discharge. ENT: Reports sore throat CARDIOVASCULAR: Denies chest pain, palpitations, or edema. RESPIRATORY: Denies cough or dyspnea. GASTROINTESTINAL: Denies abdominal pain, nausea, vomiting, or diarrhea. GENITOURINARY: Denies dysuria or hematuria. SKIN: Denies rash or itching. MUSCULOSKELETAL: Denies back pain, joint pain, or myalgia. NEUROLOGIC: Denies headache, numbness, dizziness, or weakness. PSYCHIATRIC: Denies anxiety or depression. [facility] Past Medical History Medical History Hypertension Surgical History Surgical History No history of previous surgery Family History Family History Father , PASSED FROM HEART FAILURE. Heart disease Diabetes mellitus Congestive heart failure Mother , PASSED FROM COVID. Hypertension COVID Sibling Hypertension Sibling Hypertension Social History Social History Smoking status: Former smoker Tobacco type: cigarettes Alcohol intake: current Alcohol use details: Patient states she is a social drinker when not . Substance use: never Spiritual care concerns: No Exam Narrative: GENERAL: Well-appearing, well-nourished, no physical limitations, and in no acute distress. HEAD: Normocephalic, atraumatic. EYES: Conjunctivae erythematous without purulent drainage, PERRLA and EOMI. ENT: External nose normal, Nares clear, no rhinorrhea or epistaxis. Mucous membranes moist. Oropharynx with tonsillar hypertrophy and exudate. NECK: Bilateral cervical adenopathy CHEST: Clear to auscultation. No respiratory distress. No wheezes rales or rhonchi. HEART: Regular rate and rhythm. No murmur heard. Normal peripheral pulses. EXTREMITIES: Normal range of motion. No edema. No clubbing or cyanosis SKIN: Warm, dry, no rash. No noted wounds NEURO: No focal deficits. Alert and oriented x3. MAEW. CN's II-XI intact bilaterally, normal gait PSYCH: Cooperative. Normal mood and affect. Course Vital Signs Vital signs: Vital Signs Temperature 37.2 C 02/03/22 16:19 Temperature 37.2 C 02/03/22 16:19 MDM - URI/Sore Throat Lab Data Labs: Lab Results 02/03/22 02/03/22 Range/Units 16:18 17:45 Influenza A (RT-PCR) Negative (Negative) Influenza B (RT-PCR) Negative (Negative) RSV (RT-PCR) Negative (Negative) SARS-CoV-2 RNA (RT-PCR) Negative Group A Strep (PCR) Detected A (Negative) Discharge Plan Discharge Clinical Impression: Strep pharyngitis Patient Disposition: Home, Self-Care Condition: Stable Instructions: Antibiotic Form, Strep Throat (DC) Prescriptions: New clindamycin HCl 300 mg capsule 300 mg PO Q8H 7 Days Qty: 21 0RF Follow-up/Referrals: Damion Velez MD [Primary Care Provider] - Time of Disposition: 18:31
[2022-02-03 18:28] LABS: Strep Group A RT-PCR DETECTED (Negative)
[2022-02-03 18:49] VITALS: BP 130/74; PULSE 80; RESP 16; TEMP 36.6; O2SAT 98
== END 2022-02-03 18:50 | disposition home or self-care (01) ==
PROVIDERS: Emergency Provider Nurse Practitioner Family; PCP Emergency Medicine
DX: J02.0 Streptococcal pharyngitis (principal); Z20.822 Contact with and (suspected) exposure to COVID-19; I10 Essential (primary) hypertension; Z87.891 Personal history of nicotine dependence
CPT/HCPCS: 87637; 87651; 96372; 99283; A9270; J1100

== ENCOUNTER 2022-10-11 03:10 | Emergency (ER) | payer OTHER, SELFPAY ==
[2022-10-11 03:14] VITALS: BP 152/95; PULSE 82; RESP 15; TEMP 36; O2SAT 100
[2022-10-11 07:13] VITALS: BP 127/89; PULSE 78; RESP 16; TEMP 36.7; O2SAT 100
--- NOTE | 2022-10-11 07:26 | ED.GENADULT ---
HPI - General Adult General Chief complaint: Skin/Abscess/Foreign Body Stated complaint: bump on right armpit Time Seen by Provider: 10/11/22 07:26 Source: patient Mode of arrival: ambulatory Limitations: no limitations History of Present Illness HPI narrative: 26 years old -[place] female presents with right armpit pain started few days ago. Patient had similar symptoms years ago. Never had surgery or incision and drainage before. Usually gets better on antibiotic. Patient denies any fever, chills, nausea, vomiting or drainage from that lesion. Related Data Allergies Allergy/AdvReac Type Severity Reaction Status Date / Time amoxicillin Allergy Severe Swelling Verified 10/11/22 03:17 of Lip/Tongue/Throat Review of Systems Review of Systems: All systems reviewed & are unremarkable except as noted in HPI and below PMFSH Past Medical History Medical History Hypertension Surgical History Surgical History No history of previous surgery Family History Family History Father , PASSED FROM HEART FAILURE. Heart disease Diabetes mellitus Congestive heart failure Mother , PASSED FROM COVID. Hypertension COVID Sibling Hypertension Sibling Hypertension Social History Social History Smoking status: Former smoker Tobacco type: cigarettes Alcohol intake: current Alcohol use details: Patient states she is a social drinker when not . Substance use: never Spiritual care concerns: No Exam Narrative: General appearance: Well-developed, well-nourished Skin: Normal color Head: Normocephalic, nontraumatic Eyes: Clear conjunctiva ENT: Oropharynx normal, ears normal, nose normal Neck: Supple, nontender Chest and respiratory: Airway patent, no respiratory distress, no accessory muscle use Heart: Regular rate/rhythm Abdomen: Soft, nontender, no organomegaly, quiet bowel sounds Vascular: Normal peripheral pulses, normal capillary refill. 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, no gross motor deficit Course Vital Signs Vital signs: Vital Signs Temperature 36.0 C L 10/11/22 03:14 Pulse Rate 82 10/11/22 03:14 Respiratory Rate 15 10/11/22 03:14 Blood Pressure 152/95 H 10/11/22 03:14 Pulse Oximetry 100 10/11/22 03:14 Oxygen Delivery Room Air 10/11/22 03:14 Temperature 36.7 C 10/11/22 07:13 Pulse Rate 78 10/11/22 07:13 Respiratory Rate 16 10/11/22 07:13 Blood Pressure 127/89 10/11/22 07:13 Pulse Oximetry 100 10/11/22 07:13 Oxygen Delivery Room Air 10/11/22 03:14 Medical Decision Making MDM Narrative Medical decision making narrative: Patient presents with hidradenitis suppurativa, no abscess at this time, My plan to discharge patient on clindamycin orally and topically and to follow-up with surgery/dermatology for further management no surgical management at this time. Differential Diagnosis Differential Diagnosis: Hidradenitis suppurativa Vital Signs Vital Signs: Vital Signs Temperature 36.0 C L 10/11/22 03:14 Pulse Rate 82 10/11/22 03:14 Respiratory Rate 15 10/11/22 03:14 Blood Pressure 152/95 H 10/11/22 03:14 Pulse Oximetry 100 10/11/22 03:14 Oxygen Delivery Room Air 10/11/22 03:14 Temperature 36.7 C 10/11/22 07:13 Pulse
== END 2022-10-11 09:01 | disposition home or self-care (01) ==
PROVIDERS: Emergency Provider Emergency Medicine
DX: L73.2 Hidradenitis suppurativa (principal); I10 Essential (primary) hypertension; Z87.891 Personal history of nicotine dependence
CPT/HCPCS: 99283

== ENCOUNTER 2022-10-20 19:16 | Emergency (ER) | payer OTHER, SELFPAY ==
[2022-10-20 19:28] VITALS: BP 148/84; PULSE 101; RESP 20; TEMP 36.9; O2SAT 100
[2022-10-20 20:31] LABS: Influenza A QL RT-PCR Negative (Negative); Influenza B QL RT-PCR Negative (Negative); SARS-CoV-2 RNA PCR Positive (Negative)
== END 2022-10-20 23:30 | disposition left against medical advice (07) ==
LOC: ANHED 21:06
PROVIDERS: Emergency Provider Emergency Medicine
DX: U07.1 COVID-19 (principal)
CPT/HCPCS: 87636; 99199

== ENCOUNTER 2025-02-14 13:05 | Emergency (ER) | payer OTHER, SELFPAY ==
--- OUTSIDE RECORDS SUMMARY | 2025-02-14 13:08 | XMS_ITS | Clinical Summary ---
Author Organization [place] [id number] [facility] Address [address] [place] [address] Care Team Providers Care Technical Aid Name Role Phone Natlay Farley NP Primary Care Provider [phone] Allergies Active Allergy Reactions Criticality Noted Date Comments Amoxicillin Anaphylaxis High 03/17/2023 Medications norethindrone (MICRONOR) 0.35 mg tablet 3 Active ferrous sulfate 325 mg (65 mg of elemental iron) tabletIndications :Iron Deficiency Anemia Take 1 tablet (325 mg total) by mouth daily with breakfast 90 tablet 1 4 Active blood pressure test kit-large kitIndications:Pr imary hypertension 1 kit 2 (two) times a day Take blood pressure twice daily. 1 kit 4 Active amLODIPine (NORVASC) 2.5 mg tablet Take 1 tablet (2.5 mg total) by mouth daily 30 tablet 1 4 Active Active Problems Problem Noted Date Diagnosed Date Primary hypertension 03/17/2023 Assessment & Plan (08/15/2023 3:21 PM CDT): Pt's symptoms had resolved on the Amlodipine and BP was at goal. She has not been on it since our visit d/t not following up/not having a refill. Home BP's not at goal since stopping. Will restart Amlodipine and follow up in 4 weeks. 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 She also will get headaches and light-headed when they are elevated. She has tried her siblings Losartan-HCTZ for the past 3 days and has noticed improvement in readings and symptoms. Patient to stop taking sibling's BP medication. We will start Amlodipine 2.5 mg, home BP log and updated labs ordered. Follow up in 4 weeks. Immunizations Immunization Administration Dates Next Due DTP 04/01/1996, 6,04/05/1995,02/02 HPV, Bivalent 04/01/2010 HPV, Quadrivalent 03/31/2008 Hep A, Unspecified 04/01/2010 Hep B, Adolescent or Pediatric 05/18/1995,1994,1994 HiB 04/01/1996, 6,04/05/1995,02/02 Influenza, Quadrivalent, Rec ombinant, Egg Free, Preservative Free, Intramuscular 02/14/2021 Influenza, Quadrivalent, Spl it, Intramuscular 01/27/2017 Influenza, Quadrivalent, Spl it, Preservative Free, Intramuscular 12/04/2018 Influenza, Unspecified 03/17/2023(Deferr ed: Patient Refused),02/20/2022,03/31/2008 MMR 12/26/1995 Meningococcal ACWY, Unspecified 04/01/2010 Moderna SARS-CoV-2 Monovalen t Vaccination (12+ YRS) 04/06/2021,02/14/2021 OPV 05/18/1995,04/05/1995,02/02/1995 Tdap 03/29/2019,04/01/2010 Family History Medical History Relation Name Comments Hypertension Brother 1 Hypertension Brother 2 Diabetes type II Father Heart failure Father Hypertension Father high blood pressure Mother Relation Name Status Comments Brother 1 Brother 2 Alive Father Mother Social History Tobacco Use Types Packs/Day Years Used Date Smoking Tobacco: Former Cigarettes 0.5 3 0 02/20/2019 - 02/20/2022 Passive Smoke Exposure: Past Smokeless Tobacco: Never Tobacco Cessation:Counseling Given: Not Answered PHQ-2 Answer Date Recorded PHQ-2 Total Score (If total score is 3 or more points, staff should administer the PHQ-9) 0 08/15/2023 Personal Safety Answer Date Recorded Getting School Help Needed Not on file 02/28 Comments Unknown Sex and Gender Information Value Date Recorded Sex Assigned at Not on file Legal Sex Female 8:59 PM TYPO MACHINE OPERATOR Gender Identity Not on file Sexual Orientation Not on file Last Filed Vital Signs Vital Sign Reading Time Taken Comments Blood Pressure 110/80 08/15/2023 1:08 PM CDT Pulse 87 08/15/2023 1:08 PM CDT Temperature 36.2 C (97.1 F) 08/15/2023 1:08 PM CDT Respiratory Rate 18 03/17/2023 11:43 AM TYPO MACHINE OPERATOR Oxygen Saturation 99% 08/15/2023 1:08 PM CDT Inhaled Oxygen Concentration - - Weight 91.2 kg (201 lb) 08/15/2023 1:08 PM CDT Height 169.4 cm (5' 6.69) 08/15/2023 1:08 PM CD T Body Mass Index 31.77 08/15/2023 1:08 PM CDT Plan of Treatment Health Maintenance Due Date Last Done Comments Hepatitis C Screening 1994 Varicella Vaccines (1 of 2 - 13+ 2-dose series) 12/11/2007 Regular Well Visit/Exam 18-64 2012 Cervical Cancer Screening 2023 12/09/2022 Depression Screening 08/14/2024 08/15/2023, 03/17/19 Covid-19 Vaccine ( - season) 2024 04/06/2021, 02/14/2021 Influenza Vaccine (#1) 2024 , 02/14/2021, 12/04/2018, Additional history exists DTaP/Tdap/Td Vaccine (7 - Td or Tdap) 03/29/2029 03/29/2019, 04/01/2010, 04/01/1996, Additional history exists Hepatitis B Screening Completed 05/18/1995 , 02/02/1995, 1994 HPV Vaccines Completed 04/01/2010, 03/31/2008 Pneumococcal vaccine <65 Aged Out No longer eligible based on patient's age to complete this topic Insurance [facility] Care Teams Technical Aid Relationship Specialty Start Date End Date Nataly Farley NP [address] [facility] [address] [place] [address] PCP - General Family Medicine 03/17/23
[2025-02-14 13:51] VITALS: BP 155/97; PULSE 83; RESP 16; TEMP 36.4; O2SAT 100
== END 2025-02-14 17:34 | disposition left against medical advice (07) ==
LOC: ANHED 17:59
DX: R10.9 Unspecified abdominal pain (principal)
CPT/HCPCS: 99199